=== PATIENT | female | born 1995 | race Caucasian/White ===

== ENCOUNTER 2020-02-13 10:12 | Inpatient (IN) | payer SELFPAY ==
[2020-02-13 10:20] VITALS: BP 134/72; PULSE 105; RESP 16; TEMP 36.4; O2SAT 100; BMI 24.8
--- NOTE | 2020-02-13 10:44 | ED_ITS ---
HPI - Medical Clearance General Chief complaint: Medical Clearance Stated complaint: direct admit for NPU Time Seen by Provider: 02/13/20 10:17 Source: patient Mode of arrival: EMS Limitations: other (Patient has been using methamphetamines) Related Information Home Medications Medication Instructions Recorded Confirmed No Known Home Medications 02/13/20 02/13/20 Allergies Allergy/AdvReac Type Severity Reaction Status Date / Time No Known Allergies Allergy Unverified 02/13/20 10:25 Course Vital Signs Temperature 98.0 F 02/13/20 13:03 Pulse Rate 126 H 02/13/20 13:03 Respiratory Rate 18 02/13/20 13:03 Blood Pressure 93/59 02/13/20 13:03 Pulse Oximetry 97 02/13/20 13:03 MDM - Medical Clearance MDM Narrative Medical decision making narrative: Medical history provided per documentation from [facility]. Patient denies any COVID symptoms. Chest x-ray appears negative for any signs of COVID I spoke with Dr. Lee he has no questions orders read by Dr. Mcdaniel Discharge Plan Discharge Patient Disposition: Admitted As Inpatient Admit Provider: Jan Lee Discharge Date/Time: 02/13/20 12:43
--- NOTE | 2020-02-13 10:44 | XR_ITS ---
WS: [id number] PORTABLE CHEST HISTORY: Hallucinations. COMPARISON: None available. Lungs are clear and well expanded. No pleural effusion or pneumothorax. Cardiac size: Normal. Mediastinum/Aorta: Normal mediastinum. Mild RIGHT convex curvature thoracolumbar spine. XR/XR chest 1V portable [id number] IMPRESSION: Unremarkable portable chest.
[2020-02-13 10:45] VITALS: O2SAT 100
--- NOTE | 2020-02-13 10:48 | PC.NURSE ---
pt is in gown. pt belongings in bag outside of pt's room. pt in safe room. 1:1 sitter present at bedside
--- NOTE | 2020-02-13 11:09 | PC.NURSE ---
REPORT RECIEVED FROM [facility].
[2020-02-13 11:14] VITALS: BP 129/87; PULSE 75; RESP 16; O2SAT 99
--- NOTE | 2020-02-13 12:17 | PC.NURSE ---
PATIENT ARRIVED FROM ER AT 11:25 VIA W/C ESCORTED BY ER STAFF AND SECURITY. ADMISSIONS DID NOT GET PATIENT INTO THE COMPUTER UNTIL 12:13, AFTER BEING NOTIFIED SEVERAL TIMES. CARE PLAN STARTED AT 12:13
[2020-02-13 13:03] VITALS: BP 93/59; PULSE 126; RESP 18; TEMP 36.7; O2SAT 97
[2020-02-13 13:43] VITALS: BP 95/59; PULSE 126; RESP 18; TEMP 36.6; O2SAT 97
[2020-02-13 19:59] VITALS: BP 108/65; PULSE 115; RESP 19; TEMP 36.6; O2SAT 96
[2020-02-14 06:00] VITALS: BP 118/85; PULSE 82; RESP 20; TEMP 36.6; O2SAT 97
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
[2020-02-14] MEDS: nicotine 2 mg Gum BUCCAL (10:31)
[2020-02-14] MEDS: lithium carbonate 300 mg Capsule PO ×2 (12:50→17:04)
[2020-02-14 14:00] VITALS: BP 117/81; PULSE 101; RESP 20; TEMP 36.7; O2SAT 99
[2020-02-14 21:16] VITALS: BP 115/76; PULSE 88; RESP 16; TEMP 36.5; O2SAT 99
[2020-02-14] MEDS: mirtazapine 15 mg Tablet PO (21:45)
[2020-02-15 06:00] VITALS: BP 117/85; PULSE 91; RESP 17; TEMP 36.7; O2SAT 97
[2020-02-15] MEDS: lithium carbonate 300 mg Capsule PO ×2 (09:45→17:52)
[2020-02-15] MEDS: nicotine 2 mg Gum BUCCAL (10:30)
[2020-02-15 14:00] VITALS: BP 101/62; PULSE 72; RESP 18; TEMP 36.7; O2SAT 98
--- NOTE | 2020-02-15 15:31 | P.PN_ITS ---
Subjective NPU Subjective: Interval history: Nurys presented today reporting that she is getting some movement in relation to possible rehabilitation opportunities as she has a brother who is available in investigating her getting well. She reports the medication is helping though she was a little dizzy adjusting to it but she reports that she is very happy to be back on her medication and not out there chasing her tail. The acuity of the unit is wearing on her somewhat and she is hopeful that she can go to rehabilitation as soon as possible. We agreed that we will work with the clinical social work therapist tomorrow to see if it's possible to get her into a facility sooner rather than later. Mental Status Exam MSE Comments: This is a well-nourished, well-developed, young, white female, with adequate dress, grooming, and eye contact. No abnormal movements, except for resolving psychomotor retardation. Cooperative with exam in no acute distress. Speech was normal rate and volume. Mood described as depressed, but better; affect congruent. Thought process, organized. Thought content: patient denied any suicidal or homicidal ideation, there were no delusions reported or noted, patient denied any auditory or visual hallucinations. Attention, concentration, and memory appear intact but none were formally tested. She is alert and oriented times three. Insight and judgment are improving. Impulse co ntrol is limited but improving. Vitals/I&O/Wt Last Vital Signs Temp 98.1 F 02/15/20 06:00 Pulse 91 02/15/20 06:00 Resp 17 02/15/20 06:00 BP 117/85 02/15/20 06:00 Pulse Ox 97 02/15/20 06:00 A&P Additional A&P Information (1) Methamphetamine dependence: (2) Depressive disorder: (3) Mood disorder: (4) Psychosis: This is a 24 year old, white female, with active addiction with methamphetamine, with some likely methamphetamine induced hallucinations, depression, and suicidal ideation. Continue current medication Encourage individual, group, and milieu therapy. Continue q-15 minute checks for safety. Encourage discharge to a sober living treatment at the highest level of care to which she is willing to commit. Involuntary Hold Information 96 Hour Hold: 96 Hour Involuntary Admission: No Attestations NPU Medical Necessity Statement*: Inpatient hospitalization is medically necessary and the clinically appropriate intervention at this time. Medications were restarted and we will monitor and make adjustments as indicated. Likely length of stay is 2-4 days. Coding Level of Care Code Acute Hairspring I Inspector for Killian Ruiz
[2020-02-15 20:31] VITALS: BP 105/76; PULSE 95; RESP 16; TEMP 36.6; O2SAT 98
--- NOTE | 2020-02-16 03:51 | PC.NURSE ---
pt refused HS meds this night. no behavior issues noted.
[2020-02-16 06:00] VITALS: BP 124/88; PULSE 98; RESP 16; TEMP 36.5; O2SAT 98
[2020-02-16] MEDS: lithium carbonate 300 mg Capsule PO ×2 (08:59→17:50)
[2020-02-16] MEDS: acetaminophen 325 mg Tablet 650 MG PO (10:47)
[2020-02-16] MEDS: nicotine 2 mg Gum BUCCAL ×2 (10:59→14:31)
--- NOTE | 2020-02-16 11:57 | P.PN_ITS ---
Subjective NPU Subjective: Interval history: Nurys presents today still having some moments of emotional dysregulation and reported depression, but slowly improving per her report on her medication. She identified that her brother had called her about a program and we in fact were able to confirm that with our treatment team and identified that she will in fact have a bed at the facility no later than Wednesday, most likely Wednesday, but possibly this weekend. She has struggled mildly with her addiction and is excited about being able to go from this facility to that facility, ensuring her sobriety and with full preparation to do a full, at least 30 days at that facility. She denied any other issues. She reports she is eating better and sleeping fine. Mental Status Exam MSE Comments: This is a well-nourished, well-developed, young, white female, with adequate dress, grooming, and eye contact. No abnormal movements, except for resolving psychomotor retardation. Cooperative with exam in no acute distress. Speech was normal rate and volume. Mood described as better; affect congruent. Thought process, organized. Thought content: patient denied any suicidal or homicidal ideation, there were no delusions reported or noted, patient denied any auditory or visual hallucinations. Attention, concentration, and memory appear intact but none were formally tested. She is alert and oriented times three. Insight and judgment are improving. Impulse control is limited but improving. Vitals/I&O/Wt Last Vital Signs Temp 98.3 F 02/16/20 14:00 Pulse 100 02/16/20 14:00 Resp 18 02/16/20 14:00 BP 108/76 02/16/20 14:00 Pulse Ox 98 02/16/20 14:00 A&P Additional A&P Information (1) Methamphetamine dependence: (2) Depressive disorder: (3) Mood disorder: (4) Psychosis: This is a 24 year old, white female, with active addiction with methamphetamine, with some likely methamphetamine induced hallucinations, depression, and suicidal ideation. Continue current medication Encourage individual, group, and milieu therapy. Continue q-15 minute checks for safety. Encourage discharge to a sober living treatment at the highest level of care to which she is willing to commit. Involuntary Hold Information 96 Hour Hold: 96 Hour Involuntary Admission: No Attestations NPU Medical Necessity Statement*: Inpatient hospitalization is medically necessary and the clinically appropriate intervention at this time. Medications were restarted and we will monitor and make adjustments as indicated. Likely length of stay is 1-3 days. Coding Level of Care Code Acute Pinsetter Mechanic Automatic for Killian Ruiz
[2020-02-16 14:00] VITALS: BP 108/76; PULSE 100; RESP 18; TEMP 36.8; O2SAT 98
[2020-02-16] MEDS: mirtazapine 15 mg Tablet PO (20:12)
[2020-02-16] MEDS: trazodone 50 mg Tablet PO (20:13)
[2020-02-16] MEDS: hyDROXYzine 25 mg Capsule 50 MG PO (20:13)
[2020-02-16 20:30] VITALS: BP 128/86; PULSE 103; RESP 15; TEMP 36.8; O2SAT 99
--- NOTE | 2020-02-16 21:08 | PC.NURSE ---
pt given scheduled remeron and PRN vistaril and trazodone per request.
[2020-02-16 22:00] VITALS: BP 128/86; PULSE 103; RESP 15; TEMP 36.8; O2SAT 99
[2020-02-17 06:00] VITALS: BP 119/83; PULSE 85; RESP 13; TEMP 36.6; O2SAT 98
[2020-02-17] MEDS: lithium carbonate 300 mg Capsule PO ×2 (09:03→19:12)
--- NOTE | 2020-02-17 10:15 | PM.NPN ---
Subjective NPU Subjective: Interval history: Nurys presents today reporting she is excited about discharge on Wednesday. She is glad that her brother was supportive in the way that he was. She reports that she feels optimistic about the options she has in front of her. She denies any major issues. She reports that she is eating and sleeping better. She denies any other specific concerns. Mental Status Exam MSE Comments: This is a well-nourished, well-developed, young, white female, with adequate dress, grooming, and eye contact. No abnormal movements, with mild psychomotor retardation. Cooperative with exam in no acute distress. Speech was normal rate and volume. Mood described as optimistic; affect congruent. Thought process, organized. Thought content: patient denied any suicidal or homicidal ideation, there were no delusions reported or noted, patient denied any auditory or visual hallucinations. Attention, concentration, and memory appear intact but none were formally tested. She is alert and oriented times three. Insight and judgment are fair and improving. Impulse control is improving. Vitals/I&O/Wt Last Vital Signs Temp 97.9 F 02/17/20 06:00 Pulse 85 02/17/20 06:00 Resp 13 02/17/20 06:00 BP 119/83 02/17/20 06:00 Pulse Ox 98 02/17/20 06:00 Weight last 48 hrs Weight 51.88 kg A&P Additional A&P Information (1) Methamphetamine dependence: (2) Depressive disorder: (3) Mood disorder: (4) Psychosis: This is a 24 year old, white female, with active addiction with methamphetamine, with some likely methamphetamine induced hallucinations, depression, and suicidal ideation. Continue current medication Encourage individual, group, and milieu therapy. Continue q-15 minute checks for safety. Discharge to a sober living facility inpatient Wednesday most likely. Involuntary Hold Information 96 Hour Hold: 96 Hour Involuntary Admission: No Attestations NPU Medical Necessity Statement*: Inpatient hospitalization is medically necessary and the clinically appropriate intervention at this time. Medications were restarted and we will monitor and make adjustments as indicated. Likely length of stay is 2-3 days. Coding Level of Care Code Acute Spiritual Care Coordinator for Killian Ruiz
[2020-02-17 14:00] VITALS: BP 137/87; PULSE 93; RESP 18; TEMP 36.9
[2020-02-17] MEDS: nicotine 2 mg Gum BUCCAL (16:24)
[2020-02-17] MEDS: mirtazapine 15 mg Tablet PO (21:31)
[2020-02-17] MEDS: trazodone 50 mg Tablet PO (21:31)
[2020-02-17] MEDS: hyDROXYzine 25 mg Capsule 50 MG PO (21:31)
[2020-02-17 22:00] VITALS: BP 127/86; PULSE 98; RESP 16; TEMP 36.8; O2SAT 98
--- NOTE | 2020-02-18 00:38 | PC.NURSE ---
pt was given HS remeron and PRN trazodone and vistaril.
[2020-02-18 06:00] VITALS: BP 122/84; PULSE 75; RESP 15; TEMP 36.6; O2SAT 99
[2020-02-18] MEDS: lithium carbonate 300 mg Capsule PO ×2 (08:55→17:33)
[2020-02-18] MEDS: nicotine 2 mg Gum BUCCAL ×2 (08:55→17:33)
--- NOTE | 2020-02-18 09:15 | PM.NPN ---
Subjective NPU Subjective: Interval history: Nurys presents today reporting that she has a little bit of a patch on her left wrist that she is pretty sure is poison clover, and it has certainly been irritating her really badly, so we discussed the risks, benefits, and alternatives of starting some hydrocortisone cream to help her with that. Otherwise, she reports that her medication is working really well, and she is optimistic and hopeful for rehab tomorrow. She endorses real optimism about getting her sobriety under control. Mental Status Exam MSE Comments: This is a well-nourished, well-developed, young, white female, with adequate dress, grooming, and eye contact. No abnormal movements. Cooperative with exam in no acute distress. Speech was normal rate and volume. Mood described as pretty good; affect congruent. Thought process, organized. Thought content: patient denied any suicidal or homicidal ideation, there were no delusions reported or noted, patient denied any auditory or visual hallucinations. Attention, concentration, and memory appear intact but none were formally tested. She is alert and oriented times three. Insight and judgment are fair and improving. Impulse control is improving. Vitals/I&O/Wt Last Vital Signs Temp 97.8 F 02/18/20 06:00 Pulse 75 02/18/20 06:00 Resp 15 02/18/20 06:00 BP 122/84 02/18/20 06:00 Pulse Ox 99 02/18/20 06:00 Weight last 48 hrs Weight 51.88 kg Home Medications No Known Home Medications 02/13/20 [History Confirmed 02/13/20] Active Medications Acetaminophen (Tylenol) 650 mg PO Q4H PRN PRN Reason: MILD PAIN Last Admin: 02/16/20 10:47 Dose: 650 mg Documented by: Benztropine Mesylate (Cogentin) 1 mg PO BID PRN PRN Reason: Mild Extrapyramidal symptoms Camphor/Menthol/Phenol (Blistex) 1 applic TOPICAL Q1H PRN PRN Reason: DRYNESS Diphenhydramine HCl (Benadryl) 50 mg IM ONCE PRN PRN Reason: Severe Extrapyramidal Symptoms Diphenhydramine HCl (Benadryl) 50 mg IM Q4H PRN PRN Reason: Severe Aggression Haloperidol (Haldol) 5 mg PO Q4H PRN PRN Reason: AGITATION Haloperidol Lactate (Haldol Inj) 5 mg IM Q4H PRN PRN Reason: Severe Aggression Hydrocortisone (Anusol-Hc) 1 applic TOPICAL QID PRN PRN Reason: SKIN IRRITATION Hydroxyzine Pamoate (Vistaril) 50 mg PO Q6H PRN PRN Reason: ANXIETY Last Admin: 02/18/20 13:40 Dose: 50 mg Documented by: Ibuprofen (Motrin) 800 mg PO Q8H PRN PRN Reason: PAIN [place] Carbonate (Eskalith) 300 mg PO BID [facility] Last Admin: 02/18/20 17:33 Dose: 300 mg Documented by: Loperamide HCl (Imodium Capsule) 2 mg PO Q6H PRN PRN Reason: DIARRHEA Lorazepam (Ativan) 2 mg IM Q4H PRN PRN Reason: Severe Aggression Mirtazapine (Remeron) 15 mg PO BEDTIME [facility] Last Admin: 02/17/20 21:31 Dose: 15 mg Documented by: Nicotine (Nicoderm 21 Mg Patch) 1 patch TRANSDERMA DAILY PRN PRN Reason: NICOTINE WITHDRAWAL Nicotine Polacrilex (Nicorette) 2 mg BUCCAL Q2H PRN PRN Reason: NICOTINE WITHDRAWAL Last Admin: 02/18/20 17:33 Dose: 2 mg Documented by: Olanzapine (Zyprexa Zydis) 5 mg PO Q4H PRN PRN Reason: Agitation/Psychosis Ondansetron HCl (Zofran) 4 mg PO Q6H PRN PRN Reason: NAUSEA AND VOMITING Trazodone HCl (Desyrel) 50 mg PO BEDTIME PRN PRN Reason: INSOMNIA A&P Additional A&P Information (1) Methamphetamine dependence: (2) Depressive disorder: (3) Mood disorder: (4) Psychosis: This is a 24 year old, white female, with active addiction with methamphetamine, with some likely methamphetamine induced hallucinations, depression, and suicidal ideation. Continue current medication Encourage individual, group, and milieu therapy. Continue q-15 minute checks for safety. Discharge to a sober living facility inpatient Wednesday most likely. Involuntary Hold Information 96 Hour Hold: 96 Hour Involuntary Admission: No Attestations NPU Medical Necessity Statement*: Inpatient hospitalization is medically necessary and the clinically appropriate intervention at this time. Medications were restarted and we will monitor and make adjustments as indicated. Likely length of stay is 1-2 days. Coding Level of Care Code Acute Policy Manager for Killian Ruiz
[2020-02-18] MEDS: hyDROXYzine 25 mg Capsule 50 MG PO ×2 (13:40→20:35)
[2020-02-18 14:00] VITALS: BP 122/84; PULSE 75; RESP 18; TEMP 36.3; O2SAT 99
[2020-02-18] MEDS: mirtazapine 15 mg Tablet PO (20:27)
[2020-02-18] MEDS: trazodone 50 mg Tablet PO (20:35)
[2020-02-18 20:36] VITALS: BP 93/53; PULSE 76; RESP 17; TEMP 37.1; O2SAT 99
[2020-02-18 20:57] VITALS: BP 113/78; PULSE 106; RESP 20; TEMP 36.6; O2SAT 99
--- NOTE | 2020-02-18 22:08 | PC.NURSE ---
Trazodone and visteril given with 2100 medication for sleep and anxiety.
[2020-02-19 06:00] VITALS: BP 115/82; PULSE 82; RESP 20; TEMP 36.7; O2SAT 97
[2020-02-19] MEDS: lithium carbonate 300 mg Capsule PO (08:09)
[2020-02-19] MEDS: nicotine 2 mg Gum BUCCAL ×2 (08:25→12:24)
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
[2020-02-19 11:37] VITALS: BP 115/82; PULSE 82; RESP 20; TEMP 36.7; O2SAT 97
== END 2020-02-19 13:04 | disposition home or self-care (01) | DRG 885 ==
LOC: ER 11:48 → NP 12:12
PROVIDERS: Admitting Provider Psychiatry & Neurology Psychiatry; Visit Provider Psychiatry & Neurology Psychiatry
DX: F23 Brief psychotic disorder (principal); F15.20 Other stimulant dependence, uncomplicated; F39 Unspecified mood [affective] disorder; F32.9 Major depressive disorder, single episode, unspecified; Z62.810 Personal history of physical and sexual abuse in childhood; Z62.811 Personal history of psychological abuse in childhood; B00.9 Herpesviral infection, unspecified; F17.210 Nicotine dependence, cigarettes, uncomplicated
CPT/HCPCS: 12345; 71045; 99281